=== PATIENT | female | born 1990 | race Caucasian/White ===

== ENCOUNTER 2016-06-16 05:35 | Day surgery (SDC) | payer OTHER ==
[2016-06-16] VITALS (9 sets, daily range): BP systolic 111–131; BP diastolic 56–80; PULSE 54–69; RESP 18–21; O2SAT 87–99
[~2016-06-16] VITALS: Ht 162.6 cm; Wt 98.9 kg
[~2016-06-16 05:35] MED LIST: AMOX-366 PO; CHOL100045 PO; CODE118S2 PO; FERR-83 PO; FLUT12AE8 IH; PREN-148 PO
[2016-06-16] MEDS ORDERED: Rocuronium 10 mg/mL 5 mL Inj ONE (05:36)
[2016-06-16] MEDS ORDERED: Dexamethasone 4 mg/mL Inj ONE (05:36)
[2016-06-16] MEDS ORDERED: fentaNYL-PF 50 mCg/mL 2 mL Inj ONE (05:36)
[2016-06-16] MEDS ORDERED: Ondansetron 2 mg/mL 2 mL Inj ONE (05:36)
[2016-06-16] MEDS ORDERED: Propofol 10,000 mCg/mL 20 mL Inj ONE (05:36)
[2016-06-16] MEDS ORDERED: Glycopyrrolate 0.2 mg/mL 5 mL Inj ONE (05:36)
[2016-06-16] MEDS: Lactated Ringer's 1,000 ML IV SCH ×2 (05:49→07:30)
[2016-06-16] MEDS ORDERED: Acetaminophen IV 1,000 MG in IV Premix 1 EACH IV ONE (07:10)
--- NOTE | 2016-06-16 07:10 | PCM.HPANE ---
Patient Data Surgeon Admitting Provider: Attending Provider:Bre Zheng MD Primary Care Physician:Alan Other Provider:Marylou Hirsch Anesthesia Reason for Visit Family Planning Ht/WT & BMI Height (Feet): 5 Height (Inches): 4 Weight (Kilograms): 98.9 Body Mass Index 37.00 Allergies Coded Allergies: ibuprofen (Verified Allergy, Severe, RASH, HAND SWELLING, 06/11/16) Uncoded Allergies: MUSTARD (Allergy, Unknown, unknown, 06/11/16) Past Anesthesia History Anesthesia History: Denies:: Anesthesia Reactions, Malignant Hyperthermia Diabetes History Hx Diabetes?: No MRSA MRSA: No Medications Home Meds Incl Beta Mateo: No Discontinued Reported Medications Cholecalciferol (Vitamin D3) (Vitamin D)1,000 Unit Capsule1,000 Unit PO DAILY # 1 BOTTLE Ref 0 06/11/16 Promethazine/Codeine Syrup 5 Ml Syrup5 Ml PO HS PRN PRN 06/11/16 Vit No.124/Iron/FA ( Vitamin Tablet)27 Mg Iron-800 Mcg Tablet1 Each PO DAILY 06/11/16 Fluticasone Propionate (Flovent HFA 110 mcg)12 Gm Aer.w.adap1 Puff IH BID #12 GM Ref 0 06/11/16 Ferrous Sulfate 325 Mg [id number] Mg PO BID 30 Days Ref 0 06/11/16 Amoxicillin/Clav K 875-125 mg (Augmentin 875-125 mg)1 Each Tablet1 Tablet PO BID #20 TABLET Ref 0 06/11/16 [None] No Conflict Check 04/28/13 History History of ENT Problems?: Yes Other HEENT Pertinent History: S/P TONSILLECTOMY Hx of Heart Problems?: No Cardiovascular History: Denies:: Congestive Heart Failure Heart Murmur Hypertension Hx of Respiratory Problem?: No Respiratory History: Denies:: Tuberculosis Use of C-PAP Machine Hx Neurologic Problems?: No Hx of GI Problems?: Yes Other GI Pertinent History: 02/2016, 04/2016 ED VISITS FOR ABD PAIN ? ETIOLOGY (POSS RUPT OVARIAN CYST) Hx of Problems?: No Female Hx: Denies:: Currently (NEG PREG TEST) Skin History: Denies:: History Skin Disorders? Pressure Ulcers Hx Musculoskeletal Problems?: No Hx of Psycho/Social Problems?: No Hx Surgeries?: Yes (tonsillectomy) Hx Any Other Health Problems?: Yes Other History: Positive for:: Hospitalization ([facility]) Denies:: Cancer Endocrine Disease Thyroid Disease History Blood Transfusions: Denies:: Blood Transfusions Hx Diabetes: No Hx Alcohol Use: NoHx Substance Use: No Smoking Status: Current Every Day Smoker Have You Smoked inLast 12 mo: YesApprox How Many Cigarettes/day: 3-6C/DAY X 10YRS Stop/Bang S-Snoring: Do You Snore Loudly: No T-Tired: feel tired, fatigued: No O-Obsered: Observed not breath: No P-Blood Pressure: treated: No B- Body Mass Index > 35 kg/m2: Yes A- Age over 50: No N- Neck Large Circumference: No G- Gender Male: No SOLO Total Score: 1 Risk Assessment Category Category 1A: Patient has history of documented sleep apnea, and HAS NOT received any narcotic, sedative or anesthesia administration during this stay. Category 1B: Patient has history of documented sleep apnea, and HAS received any narcotic , sedative or anesthesia administration during this stay Category 2: Patient has SUSPECTED Obstructive Sleep Apnea, and HAS received any narcotic , sedative or anesthesia administration during this stay. Category 3: Patient has SUSPECTED Obstructive Sleep Apnea and HAS NOT received narcotic, sedative or anesthesia administration during this stay. Category 4: Outpatient in Procedural Areas with known sleep apnea or who screen positive for High Risk via the STOP/BANG questionnaire. Exam Exam Vital Signs Vital Signs Date Time Temp Pulse Resp B/P Pulse Ox O2 Delivery O2 Flow Rate FiO2 06/16/16 06:11 69 18 114/71 97 Room Air General Appearance: Alert, Oriented X3, Cooperative, No Acute Distress HEENT/AIRWAY: MP 2 Lungs: Clear to Auscultation Heart: Exam Unremarkable Meds/Labs/Diagnostics Admission Meds Current Medications Lactated Ringer's (Lr) 1,000 ml @ 120 mls/hr Q8H20M IV Last administered on t 05:49; Start 06/16/16 at 05:00; Stop 06/16/16 at 13:19 Plan Impression Patient chart reviewed, patient interviewed and anesthestic plan with risks, benefits, and alternatives discussed, and informed consent obtained. NPO Status: 2030 06/15/16 ASA Physical Status: ASA2 Mod Systemic Disease Anesthetic Plan: GA Bene/Risks/Altern/Consents: Yes HP Complete Prior to Induction: Yes Richard Posadas MD Jun 16, 2016 07:10
[2016-06-16] MEDS ORDERED: Lactated Ringer's 500 ML IV PRN (08:03)
[2016-06-16] MEDS ORDERED: Lactated Ringer's 1,000 ML IV SCH (08:03)
[2016-06-16] MEDS ORDERED: Bupivacaine-MPF 0.5% W/EPI 30 mL Inj INFILTRATE ONE (08:04)
[2016-06-16] MEDS ORDERED: Labetalol 5 mg/mL 4 mL Inj IV PRN (08:05)
[2016-06-16] MEDS ORDERED: hydrALAZINE 20 mg/mL Inj IVPUSH PRN (08:05)
[2016-06-16] MEDS ORDERED: Dexamethasone 4 mg/mL Inj IVPUSH PRN (08:05)
[2016-06-16] MEDS ORDERED: EPHEDrine Sulfate 50 mg/mL Inj IM PRN (08:05)
[2016-06-16] MEDS ORDERED: HYDROmorphone 1 mg/mL Inj IVPUSH PRN ×2 (08:05→08:55)
[2016-06-16] MEDS ORDERED: fentaNYL-PF 50 mCg/mL 2 mL Inj IVPUSH PRN (08:05)
[2016-06-16] MEDS ORDERED: Phenylephrine 10,000 mCg/mL Inj IVPUSH PRN (08:05)
[2016-06-16] MEDS ORDERED: Ondansetron 2 mg/mL 2 mL Inj IVPUSH PRN ×2 (08:05→08:55)
[2016-06-16] MEDS ORDERED: EPHEDrine Sulfate 50 mg/mL Inj IVPUSH PRN (08:05)
[2016-06-16] MEDS ORDERED: Atropine 0.4 mg/mL Inj IVPUSH PRN (08:05)
[2016-06-16] MEDS ORDERED: hydrOXYzine Inj 25 MG/1 mL SDV IM PRN (08:05)
[2016-06-16] MEDS ORDERED: MetoCLOpramide 5 mg/mL 2 mL Inj IVPUSH PRN (08:55)
--- NOTE | 2016-06-16 08:55 | PCM.SURGOP ---
Surgical Operative Report Date of Service: Jun 16, 2016 Pre Operative Diagnosis Sterilization Post Operative Diagnosis Sterilization Procedure: 1. Laparoscopic bilateral tubal ligation using Filshie clips. Surgeon and Dispatcher Refinery: Surgeon: Bre Zheng MD Resident: Jose A Pinon DO PGY1 Indication for Procedure 26-year-old 3 para 3 who desires permanent sterilization. Findings: Intraoperative findings showing a normal-appearing uterus, fallopian tubes and ovaries bilaterally. Survey of the upper abdomen was normal. (see images) Procedure Details The patient was taken to the operating room where her general anesthesia was obtained without difficulty. She was placed in a lithotomy position in the [facility] and prepared and draped in the normal sterile fashion. An appropriate intraoperative time out was performed with the surgical team. A sterile speculum was then inserted into the patient's vagina and the cervix was identified and an [place] uterine manipulator was inserted without difficulty. The speculum was removed. Our attention was then turned to patient's abdomen where the umbilicus was injected with 10 mL of half percent Marcaine with epinephrine. A varies needle was inserted at the base the patient's umbilicus into the peritoneal cavity. Needle aspirate and water drop test were negative and confirmatory. A pneumoperitoneum was obtained with CO2 gas to a pressure of 15 mmHg. An 11 mm skin incision was made at the base of the umbilicus and an 11 mm Applied balloon trocar was inserted directly into the patient's peritoneal cavity using the Visiport function of the device. Survey of the abdomen is as noted above. The patient was then placed in Trendelenburg position and the uterus was mobilized and both fallopian tubes were identified and followed out to the fimbriated end. The Filshie clip applicator was then inserted and a single Filshie clip was placed on the right and left fallopian tube approximately 3 cm from the cornual region. Good Filshie clip placement was confirmed with the laparoscope. All instrument were then removed from the patient's peritoneal cavity and the pneumoperitoneum was released. The fascial incision was then reapproximated with a 0 Vicryl in a [id number] fashion. The skin was closed with 4-0 Monocryl in a subcutaneous fashion and Dermabond applied. All lap instrument and needle counts were correct times two at the endo of the procedure and the patient was taken to the recovery room awake and in good condition Complications There were no periprocedural complications identified. Surgical Specimen Removed: No Specimen sent to Pathology: No Anesthetic Plan: GA Grafts, Implants: None Output, Estimated Blood Loss: 0 Blood Administration during pizarro: No Catheters: None Post Operative Plan Discharge home when awake and stable. Bre Zheng MD Jun 16, 2016 08:55
--- NOTE | 2016-06-16 08:59 | PCM.ANEP1 ---
Post Anesthesia Phase 1 PACU Phase 1 Assessment Date of Service: Jun 16, 2016 Vital Signs Vital Signs Date Time Temp Pulse Resp B/P Pulse Ox O2 Delivery O2 Flow Rate FiO2 06/16/16 08:45 62 18 111/56 96 Nasal Cannula 5 06/16/16 08:42 37 19 87 Room Air 06/16/16 06:11 69 18 114/71 97 Room Air Anesthetic Administered: GA Level of Alertness: Awake, talking PEREZ's with Equal Strength: Yes Pain: No Nausea or Vomiting: No Oxygen Delivery: Room Air Lungs: Normal Air Movement Richard Posadas MD Jun 16, 2016 08:59
--- NOTE | 2016-06-16 08:59 | PCM.DIGYN ---
Surgical Discharge Instruction Dates of Hospitalization Date of Hospital Admission 06/16/2016 Providers Admitting Physician: Primary Care Physician: Alan Attending Physician: Bre Zheng MD Diagnosis at Time of Discharge Diagnosis at time of discharge Sterilization Post-operative diagnosis Sterilization Problems: (1) Admission for sterilization Plan: A laparoscopic bilateral tubal ligation was performed using Filshie clips. Status: Acute ICD Code: Z30.2 Diet Discharge Diet: No restrictions Activity Discharge Activity-General: Try not to overdue, Be up and about, No lifting > 10 pounds for 4-6 weeks, No driving while taking narcotic Dressing and Incisional Care Hygiene: May shower, Wash incision with soap & water, DO NOT soak incision under water, NO bathtub, hot tub or whirlpool Follow Up Plan Follow-up appointment: Weeks (2) Call your provider for: Fever, Shortness of breath, Drainage at incision, Increasing pain Bre Zheng MD Jun 16, 2016 08:59
--- NOTE | 2016-06-16 11:15 | PCM.ANEP2 ---
Post Anesthesia Evaluation ASA/CMS Post Anesthesia VS in Patient's Normal Range?: Yes Resp Stable; Airway Patent?: Yes CV Function & Hydration Stable: Yes Mental Status Recovered?: Yes Pain control Satisfactory?: Yes N/V Control Satisfactory?: Yes Richard Posadas MD Jun 16, 2016 11:15
== END 2016-06-16 23:59 | disposition home or self-care (01) ==
LOC: SAS 05:35
PROVIDERS: ATTEND Obstetrics & Gynecology
DX: Z30.2 Encounter for sterilization (principal); F17.210 Nicotine dependence, cigarettes, uncomplicated
CPT/HCPCS: 58671; J0131; J1100; J2175; J2250; J2405; J7120

== ENCOUNTER 2016-06-18 20:32 | Emergency (ER) | payer OTHER ==
[~2016-06-18] VITALS: Ht 162.6 cm; Wt 97.3 kg
[2016-06-18 20:37] VITALS: PULSE 75; RESP 15; O2SAT 95
[2016-06-18 20:42] VITALS: BP 128/84; PULSE 58; RESP 15; O2SAT 98
[2016-06-18 21:15] LABS: BASOPHILS % (AUTO) 0.3 % (0-3); EOSINOPHILS % (AUTO) 2.5 % (0-5); MONOCYTES % (AUTO) 8.7 % (4-12); Mean Corpuscular Hemoglobin 30.1 pg (27.0-35.0); NEUTROPHILS % (AUTO) 51.6 % (40-74); Platelet Count 345 bil/L (150-400)
[2016-06-18 21:35] LABS: Magnesium 1.6 mg/dL (1.6-2.6)
[2016-06-18 23:58] VITALS: BP 116/76; RESP 18; O2SAT 98
--- NOTE | 2016-06-19 00:43 | ED.REPORT ---
HPI-Rash / Abscess Date of Service Jun 19, 2016 ED Provider: Josue Tamayo MD Pt is a 26 y/o female presenting to the ED for a wound recheck. She had a tubal ligation 3 days ago and comes in today because she was concerned for an infection at the umbilical incision site because she noticed a small area of redness. She denies fever, chills, nausea, vomiting, cough, dysuria. Nursing Notes Stated Complaint: INCISION INFECTED Chief Complaint: Laceration Nursing Notes Reviewed: Yes Allergies: Coded Allergies: ibuprofen (Verified Allergy, Intermediate, Rash, 06/18/16) No Active Prescriptions or Reported Meds General Time Seen by MD: 00:34 Chief Complaint Red area Hx Obtained From: Patient Arrived By: Walk-in Onset Occurred: 9 - 12 hours ago Symptom Duration: Since onset Severity: Current: No pain currently Severity: Maximum: No pain Recent Healthcare: Recent doctor visit, Previous surgery Past Medical History Past Medical History None reported Past Surgical History Tubal ligation Reports: Tonsillectomy Smoking History Current Every Day Smoker Social History Alcohol Use: Denies alcohol use Drug Use: Denies drug use 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 Female: Denies: Dysuria Physical Exam Initial Vital Signs Vital Signs (First) Date Time Temp Pulse Resp B/P Pulse Ox O2 Delivery O2 Flow Rate FiO2 06/18/16 20:42 36.8 58 15 128/84 98 Room Air Initial VS: Reviewed, Vital signs normal Head / Eyes: Atraumatic, Normocephalic, PERRL ENT: Mucous membranes moist, Conjunctiva normal, No scleral icterus Neck: Supple, Full range of motion Respiratory: Breath sounds normal, Clear to auscultation, No respiratory distress Cardiovascular: Regular rate & rhythm, Heart sounds normal, Intact distal pulses Extremities: Vascular intact, Neuro intact, No swelling, No tenderness Neurologic: Alert, Oriented, Nonfocal Psychiatric: Mood/affect normal, Behavior normal, Normal thought content General/Constitutional: Awake, Alert, No acute distress, Well appearing, Cooperative, Not toxic appearing Skin: Atraumatic, Warm, Dry Abdomen: Atraumatic, Soft, Non-tender, No guarding, No rebound, No distention, No palpable mass Well healed umbilical laparoscopy scar with a small area of ecchymosis and redness with no masses. Interpretation & Diagnostics Lab Results Interpretation Result Diagram: 06/18/16210506/18/162105 Test 06/18/16 21:06 White Blood Count 9.6th/mm3 (3.8-10.1) Red Blood Count 4.08mil/mm3 (3.90-5.20) Hemoglobin 12.3g/dL (12.0-15.6) Hematocrit 36.7% (35.0-46.0) Mean Corpuscular Volume 90.0fL (81-100) Mean Corpuscular Hemoglobin 30.1pg (27.0-35.0) Mean Corpuscular Hemoglobin Concent 33.5% (32.0-37.0) Red Cell Distribution Width 12.8% (12.3-15.4) Platelet Count 345bil/L (150-400) Neutrophils (%) (Auto) 51.6% (40-74) Lymphocytes (%) (Auto) 36.7% (14-46) Monocytes (%) (Auto) 8.7% (4-12) Eosinophils (%) (Auto) 2.5% (0-5) Basophils (%) (Auto) 0.3% (0-3) Sodium Level 140mEq/L (134-144) Potassium Level 4.2mEq/L (3.5-5.2) Chloride Level 103mEq/L (97-108) Carbon Dioxide Level 28mmol/L (18-29) Blood Urea Nitrogen 13mg/dL (6-20) Creatinine 0.72mg/dL (0.57-1.00) Estimat Glomerular Filtration Rate 138mL/min (>59) Glucose Level 89mg/dL (60-99) Calcium Level 8.9mg/dL (8.5-10.1) Magnesium Level 1.6mg/dL (1.6-2.6) Total Bilirubin 0.2mg/dL (0.0-1.2) Aspartate Amino Transf (AST/SGOT) 15U/L (0-50) Alanine Aminotransferase (ALT/SGPT) 19U/L (0-32) Alkaline Phosphatase 70U/L (25-150) Total Protein 6.9g/dL (6.4-8.4) Albumin 3.9g/dL (3.4-5.0) Lipase 11U/L (13-60) Hold Bundy Top Tube Received (Received) Lab values outside NL range: no clinical significance. Re-Eval/Medical Decision Med Decision/Clinical Course 26-year-old year-old female presents with concern for infection following laparoscopic tubal ligation 3 days ago. There is minimal redness and tenderness. Doubt infection at this time. She was instructed to follow up if there is increasing redness, increasing pain, or purulent drainage. Re-Evaluation/Progress : Time of Eval: 00:53 Re-Evaluation/Progress Note: Pt rechecked. Informed pt of plan for treatment. Pt understands and agrees with plan for treatment. F/U instructions and RTER warnings given. All questions addressed. Counseled Regarding: Diagnosis, Lab results, Need for follow-up, When/why to return to ED Discharge & Departure Impression: Primary Impression: S/P laparoscopic surgery Disposition: Home Discharge Condition All VS Reviewed: Yes Condition: Stable Patient Instructions: Acute Wound Care (ED) Additional Instructions: Some redness and bruising is expected. This does not appear to have a significant infection. Watch for any other signs of infection like increased pain, expanding redness, or pus drainage. Follow up with your surgeon if needed. Referrals: OTHER,PHYSICIAN (PCP) Scribe Attestation Portions of this note were transcribed by Nikolay Dodge. I, Dr. Tamayo personally performed the history, physical exam and medical decision-making; I reviewed and confirmed the accuracy of the information in the transcribed note. Signed by Farrah Cheng, 06/19/16 - 1300 Josue Tamayo MD Jun 19, 2016 00:43 NIKOLAY DODGE Jun 19, 2016 00:46
== END 2016-06-19 00:54 | disposition home or self-care (01) ==
LOC: SED 20:32
DX: L53.9 Erythematous condition, unspecified (principal); Y83.8 Other surgical procedures as the cause of abnormal reaction of the patient, or of later complication, without mention of misadventure at the time of the procedure; Y92.9 Unspecified place or not applicable; Y93.9 Activity, unspecified; Y99.9 Unspecified external cause status; F17.200 Nicotine dependence, unspecified, uncomplicated; Z98.51 Tubal ligation status; Z88.6 Allergy status to analgesic agent

== ENCOUNTER 2016-07-08 22:26 | Emergency (ER) | payer OTHER ==
[2016-07-08 22:40] VITALS: BP 122/80; PULSE 83; RESP 20; O2SAT 98
--- NOTE | 2016-07-08 23:09 | ED.REPORT ---
HPI-Rash / Abscess Date of Service Jul 08, 2016 ED Provider: Josue Tamayo MD Patient is a 26 year old female with recent tubal ligation on June 16 who presents to the ED after she developed redness around her tubal ligation site 1 week ago, with white/green discharge today. Patient also noticed that the area is painful if she bumps into her abdomen or touches it. Patient has not had a fever or chills. Her procedure was preformed by Dr. Zheng, FRONT END APPLICATION DEVELOPER. Nursing Notes Stated Complaint: INFECTION AT INCISION SITE Chief Complaint: Skin Rash/Abscess Nursing Notes Reviewed: Yes Allergies: Coded Allergies: ibuprofen (Verified Allergy, Intermediate, Rash, 06/18/16) No Active Prescriptions or Reported Meds General Time Seen by MD: 23:08 Chief Complaint Tender/swollen area Hx Obtained From: Patient Arrived By: Walk-in Onset Occurred: 1 week ago Symptom Duration: Since onset Location: : Abdomen Quality: Painful Severity: Current: Mild Severity: Maximum: Mild Recent Healthcare: No recent doctor visit, No recent hospitalization Similar Sx Previous: No Past Medical History Past Medical History ovarian cyst Past Surgical History Tubal ligation Reports: Tonsillectomy Smoking History Current Every Day Smoker Social History Alcohol Use: Denies alcohol use Drug Use: Denies drug use Other Social History: Good social support, Lives with children, Local resident 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 Physical Exam Initial Vital Signs Vital Signs (First) Date Time Temp Pulse Resp B/P Pulse Ox O2 Delivery O2 Flow Rate FiO2 07/08/16 22:40 36.2 83 20 122/80 98 Room Air Initial VS: Reviewed, Vital signs normal Head / Eyes: Atraumatic, Normocephalic, PERRL ENT: Conjunctiva normal, No scleral icterus Neck: Supple, Full range of motion Extremities: Vascular intact, Neuro intact Neurologic: Alert, Oriented, Nonfocal Psychiatric: Mood/affect normal, Behavior normal, Normal thought content General/Constitutional: Awake, Alert, No acute distress Appearance / Presentation: Positive: Obese Skin: Warm, Dry Respiratory / Chest: No respiratory distress, No stridor Cardiovascular: Heart rate NL, Cap refill not delayed Abdomen: Soft (obese) Umbilical tubal ligation incision, with very small area of erythema and creamy yellow pus. Pus was sent for culture. No palpable mass or fluid collection. Rest of the abdomen is soft and nontender. Re-Eval/Medical Decision Med Decision/Clinical Course Small localized postoperative infection of the laparoscopy site. Local treatment. Follow up with Dr. Zheng in the next few days for further problems. Source of Hx: Old records Re-Evaluation/Progress : Time of Eval: 23:40 Patient Status: Condition improved Re-Evaluation/Progress Note: Patient will be given topical antibiotics for her infection. Patient understands and agrees with the plan to be discharged home. Discharge instructions and follow-up discussed. All questions were addressed. Return to the ED warnings given. Counseled Regarding: Diagnosis, Need for follow-up, When/why to return to ED Discharge & Departure Impression: Primary Impression: Postoperative infection Encounter type: initial encounter Qualified Code: T81.4XXA - Infection following a procedure, initial encounter Disposition: Home Discharge Condition All VS Reviewed: Yes Condition: Stable Patient Instructions: Cellulitis (ED) Additional Instructions: There appears to be a mild local infection at the incision site. Warm compresses 2 or 3 times daily for 10-15 minutes. Apply mupirocin (Bactroban) ointment after the compresses. Recheck with Dr. Zheng in one to 2 days. Referrals: OTHER,PHYSICIAN (PCP) Bre Zheng MD [employer] Attestation Portions of this note were transcribed by Kayla Spangler. I, Dr. Tamayo personally performed the history, physical exam and medical decision-making; I reviewed and confirmed the accuracy of the information in the transcribed note. Signed by: Farrah Reid, 07/08/2016 0847 copies to: Bre Zheng MD; OTHER,PHYSICIAN Josue Tamayo MD Jul 08, 2016 23:09 Kayla Spangler Jul 08, 2016 23:43
[2016-07-08] MEDS ORDERED: Mupirocin 2% 22 Gm Ointment TOPICAL ONE (23:40)
[2016-07-08 23:57] VITALS: BP 122/80; PULSE 83; RESP 20; O2SAT 98
== END 2016-07-08 23:57 | disposition home or self-care (01) ==
LOC: SED 22:26
DX: T81.4XXA Infection following a procedure, initial encounter (principal); Y83.9 Surgical procedure, unspecified as the cause of abnormal reaction of the patient, or of later complication, without mention of misadventure at the time of the procedure; Y93.89 Activity, other specified; Y99.8 Other external cause status; Y92.9 Unspecified place or not applicable; F17.200 Nicotine dependence, unspecified, uncomplicated; Z98.51 Tubal ligation status; Z88.6 Allergy status to analgesic agent